=== PATIENT | male | born 1940 | race Caucasian/White ===

== ENCOUNTER 2020-12-29 16:20 | Emergency (ER) | payer MEDICARE ==
[~2020-12-29 16:20] MED LIST: CARBIDOPA-LEVO1 EA14 PO; CARVEDILOL25 MG PO; COREG 12.5MG12.5 MG PO; FERROUS SULFAT325 M2 PO; HYDRALAZINE HCL25 MG PO; LIPITOR TAB 2020 MG PO; NORVASC10 MG PO; PLAVIX 75 MG TA75 MG PO; ZESTRIL40 MG PO
== END 2020-12-29 18:08 | disposition home or self-care (01) ==
LOC: ER1 16:20
DX: G20 Parkinson's disease (principal); F02.80 Dementia in other diseases classified elsewhere, unspecified severity, without behavioral disturbance, psychotic disturbance, mood disturbance, and anxiety
CPT/HCPCS: 71045; 81001; 99284